=== PATIENT | female | born 1960 | race American Indian/Alaskan Native ===

== ENCOUNTER 2016-09-27 11:15 | Outpatient (CLI) | payer BC ==
--- NOTE | 2016-09-27 16:04 | Mammography Report ---
BILATERAL DIGITAL SCREENING MAMMOGRAM with CAD : 09/27/16 11:15:00 CLINICAL: Routine screening. COMPARISON:09/08/15 FINDINGS: The breasts are heterogeneously dense, which may obscure small masses.Stable clustered punctate left calcifications with benign morphology. These were previously identified on exams going back to 2009 at [facility]. No mass, architectural distortion or suspicious calcifications. IMPRESSION: No mammographic evidence of malignancy. BI-RADS CATEGORY: 2 -- Benign RECOMMENDATION: Routine mammographic screening in one year. COMMENT: Patient follow-up letters are generated by our [employer] application.
== END 2016-09-27 11:16 | disposition home or self-care (01) ==
LOC: SPVWC 11:15
PROVIDERS: ATTEND Internal Medicine
DX: Z12.31 Encounter for screening mammogram for malignant neoplasm of breast (principal)
CPT/HCPCS: 77067; G0202